=== PATIENT | male | born 1985 | race African-American/Black ===

== ENCOUNTER → 2018-08-10 | Outpatient (CLI) | payer MEDICARE, OTHER, MEDICAID ==
--- NOTE | 2018-08-10 19:41 | XCELERA REPORT ---
[address] [address] Transthoracic Echocardiogram Report Name: FRANCESCO PINEDA II Age: 32 yrs Gender: Male : 1985 Patient Status: Outpatient Patient Location: RAD Study Date: 08/10/2018 11:10 AM Reason For Study: MITRAL VALVE DISORDERS Ordering Physician: IGNACIO TOMLIN Performed By: Estephania Middleton Interpretation Summary No pt weight, height, BSA, no Biplane LVEF, no Apical 2 chamber view, R Heart poorly visualized. 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 LVEF probably normal. MMode/2D Measurements & Calculations RVDd: 2.4 cm LVIDd: 4.3 cm FS: 38.2 % Ao root diam: 2.3 cm IVSd: 0.61 cm LVIDs: 2.7 cm EDV(Teich): 83.3 ml Ao root area: 4.3 cm2 LVPWd: 0.90 cm ESV(Teich): 26.1 ml LA dimension: 2.9 cm EF(Teich): 68.7 % Doppler Measurements & Calculations MV E max mando: MV P1/2t max mando: Ao V2 max: LV V1 max P.0 cm/sec 69.3 cm/sec 99.9 cm/sec 3.3 mmHg MV A max mando: MV P1/2t: 52.8 msec Ao max PG: LV V1 max: 48.9 cm/sec 4.0 mmHg 90.5 cm/sec MV E/A: 1.3 MVA(P1/2t): 4.2 cm2 MV dec slope: 384.3 cm/sec2 MV dec time: 0.12 sec PA V2 max: MV P1/2t-pr_phl: 97.3 cm/sec 52.8 msec PA max P.8 mmHg Left Ventricle The left ventricle is normal in size, thickness and function. There is normal left ventricular wall thickness. The left ventricular ejection fraction is normal. Biplane ef not done, Apical 2 chamber view not visualised. Doppler measurements suggest normal left ventricular diastolic function. Not all wall segments were well visualized. inferior wall and anterior wall not seen. There is no thrombus. Right Ventricle The right ventricle is not well visualized secondary to technical limitations. Atria Right atrium not well visualized secondary to technical limitations. The left atrial size is normal. m-mode measurement 31mm, normal. The interatrial septum is intact with no evidence for an atrial septal defect. Mitral Valve There is no mitral annular calcification. There is prolapse of the anterior mitral valve leaflet. There is no mitral valve stenosis. The mitral regurgitant jet is posteriorly directed, which is consistent with anterior leaflet pathology. Aortic Valve The aortic valve is trileaflet. The aortic valve opens well. There is no aortic valvular vegetation. There is no aortic valve stenosis. No aortic regurgitation is present. Tricuspid Valve The tricuspid valve is not well visualized secondary to technical limitations. No tricuspid regurgitation. Pulmonic Valve The pulmonic valve is not well visualized. There is no pulmonic valvular regurgitation. Great Vessels The aortic root is normal size. 26. Effusions There is no pericardial effusion. I WMSI = 1.00 % Normal = 100 Segments Size X - Cannot 1 - Normal 2 - 3 - Akinetic4 - 1-2 small Interpret Hypokinetic Dyskinetic 3-5 moderate 5 - 6-14 large Aneurysmal 15-16 diffuse : IGNACIO TOMLIN > Robby Kimbrough
== END ==
LOC: RAD 10:38
PROVIDERS: ATTEND Family Medicine
DX: I34.8 Other nonrheumatic mitral valve disorders (principal)
CPT/HCPCS: 93306